=== PATIENT | male | born 1960 | race Hispanic/Latino ===

== ENCOUNTER 2018-10-27 11:46 | Emergency (ER) | payer BC ==
[2018-10-27] MEDS ORDERED: NACL 0.9% 1000 ML 1,000 ML IV ONE (11:56)
--- NOTE | 2018-10-27 12:37 | Emergency Department Report ---
ED General Adult HPI - General Chief complaint: Sore Throat Stated complaint: FOOT STUCK IN ESOPHAGUS Time Seen by Provider: 10/27/18 11:54 Source: patient Mode of arrival: Ambulatory Limitations: No Limitations - History of Present Illness Initial comments: This is a 58-year-old male with an apparent food impaction of his lower esophagus. He states it happened last night. He tried to drink this morning and was unsuccessful. He is unable to use as well. He has been through several prior disimpactions as well as bougienage. His GI doctor called in anticipation of him needing EGD. He has experienced no dyspnea or significant cough. -: Sudden, hour(s) Associated Symptoms: denies other symptoms - Related Data Previous Rx's Medication Instructions Recorded Last Taken Type Omeprazole 40 mg PO DAILY #30 capsule. 10/27/18 Unknown Rx Allergies Allergy/AdvReac Type Severity Reaction Status Date / Time No Known Allergies Allergy Verified 10/27/18 11:51 ED Review of Systems ROS: Stated complaint: FOOT STUCK IN ESOPHAGUS Other details as noted in HPI Constitutional: denies: chills, fever Eyes: denies: eye pain, eye discharge, vision change ENT: denies: ear pain, throat pain Respiratory: denies: cough, shortness of breath, wheezing Cardiovascular: denies: chest pain, palpitations Endocrine: no symptoms reported Gastrointestinal: abdominal pain (lower chest/upper abdominal discomfort). denies: nausea, diarrhea Genitourinary: denies: urgency, dysuria Musculoskeletal: denies: back pain, joint swelling, arthralgia Skin: denies: rash, lesions Neurological: denies: headache, weakness, paresthesias Psychiatric: denies: anxiety, depression Hematological/Lymphatic: denies: easy bleeding, easy bruising ED Past Medical Hx - Past Medical History Previous Medical History?: Yes Additional medical history: Esophageal stenosis/obstruction - Surgical History Past Surgical History?: Yes Additional Surgical History: Prior esophageal bougienage - Social History Substance Use Type: None - Medications Home Medications: Home Medications Medication Instructions Recorded Confirmed Last Taken Type Omeprazole 40 mg PO DAILY #30 capsule. 10/27/18 Unknown Rx ED Physical Exam - General Limitations: No Limitations General appearance: alert, in no apparent distress - Head Head exam: Present: atraumatic, normocephalic - Eye Eye exam: Present: normal appearance. Absent: scleral icterus - ENT ENT exam: Present: mucous membranes moist - Neck Neck exam: Present: normal inspection - Respiratory Respiratory exam: Present: normal lung sounds bilaterally. Absent: respiratory distress - Cardiovascular Cardiovascular Exam: Present: regular rate, normal rhythm. Absent: systolic murmur, diastolic murmur, rubs, gallop - GI/Abdominal GI/Abdominal exam: Present: soft, normal bowel sounds. Absent: distended, tenderness, guarding, rebound, rigid - Rectal Rectal exam: Present: deferred - Extremities Exam Extremities exam: Present: normal inspection - Back Exam Back exam: Present: normal inspection - Neurological Exam Neurological exam: Present: alert, oriented X3, CN II-XII intact. Absent: motor sensory deficit - Psychiatric Psychiatric exam: Present: normal affect, normal mood - Skin Skin exam: Present: warm, dry, intact, normal color. Absent: rash ED Course Vital Signs 10/27/18 12:41 Temperature 97.8 F Pulse Rate 78 Respiratory 17 Rate Blood Pressure 138/83 - Reevaluation(s) Reevaluation #1: 10/27/18 12:36 Dr. Chisholm in route to provide EGD. Reevaluation #2: Spoke to Dr. Chisholm. He requested I discharged the patient for him. Spoke to the patient. He does not take aspirin, Plavix or anticoagulants. He is advised not to take any NSAID use and avoid stomach irritation since general. He is placed on omeprazole. He is to follow-up with Dr. Chisholm in 2-3 weeks. 10/27/18 15:48 ED Medical Decision Making - Lab Data Result diagrams: 10/27/18 12:12 10/27/18 12:12 Laboratory Results - last 24 hr 10/27/18 10/27/18 12:12 12:12 WBC 2.0 L RBC 4.57 Hgb 11.9 Hct 37.4 MCV 82 L MCH 26 L MCHC 32 RDW 17.7 H Plt Count 45 L Sodium 143 Potassium 3.8 Chloride 103.7 Carbon Dioxide 25 Anion Gap 18 BUN 13 Creatinine 0.8 Estimated GFR > 60 BUN/Creatinine Ratio 16 Glucose 98 Calcium 9.1 - EKG Data -: EKG Interpreted by [facility] EKG shows normal: sinus rhythm, intervals, ST-T waves Rate: normal - EKG Data Interpretation: no acute changes, other (consistent with old anterior zone consider rotation left axis deviation) Critical care attestation.: If time is entered above; I have spent that time in minutes in the direct care of this critically ill patient, excluding procedure time. ED Disposition Clinical Impression: Food impaction of esophagus Qualifiers: Encounter type: initial encounter Qualified Code(s): T18.128A - Food in esophagus causing other injury, initial encounter Disposition: TO HOME OR SELFCARE Is pt being admited?: No Does the pt Need Aspirin: No Condition: Stable Instructions: Esophageal Stricture (ED), Gastroesophageal Reflux Disease (ED), Food Impaction (ED) Additional Instructions: Avoid all stomach irritants. Rx omeprazole. Follow up with Dr. Chisholm. Prescriptions: Omeprazole 40 mg PO DAILY #30 capsule.dr Referrals: [facility] MD VIOLETA [Primary Care Provider] - 3-5 Days KEISHA CHISHOLM MD [Staff Physician] - 7-10 days Time of Disposition: 12:37
[2018-10-27 12:50] LABS: Hematocrit 37.4 % (35.5-45.6); Hemoglobin 11.9 gm/dl (11.8-15.2); Mean Corpuscular HGB Conc 32 % (32-34); Mean Corpuscular Volume 82 fl (84-94); Red Blood Count 4.57 M/mm3 (3.65-5.03); Red Cell Distribution Width 17.7 % (13.2-15.2)
[2018-10-27 13:00] LABS: Platelet Count 45 K/mm3 (140-440)
[2018-10-27 13:17] LABS: BUN/Creatinine Ratio 16; Blood Urea Nitrogen 13 mg/dL (9-20); Calcium 9.1 mg/dL (8.4-10.2); Hemolysis Index 2
--- NOTE | 2018-10-27 13:31 | History and Physical Report ---
HISTORY OF PRESENT ILLNESS: A 58-year-old white male, well known to me over several years, who has history of repeated attacks of food impaction, last EGD and dislodgement of the food impaction was a few years earlier. He had to go to another hospital in between, which was done by another physician. Today, he presented to the ER because of another bout of food impaction for which he is being seen and will require EGD with dislodgement of the food impaction to be done and possible EGD with dilation to be done at a later date. ALLERGIES: He has no known allergies. SOCIAL HISTORY: He had been a smoker in the past, but does not smoke and on rare occasion does drink alcohol. PAST MEDICAL HISTORY: He has an underlying history of hypertension, hyperlipidemia. PHYSICAL EXAMINATION: VITAL SIGNS: Otherwise stable. NECK: Shows no JVD. LUNGS: Show reduced breath sounds. CARDIOVASCULAR: Normal. ABDOMEN: Soft. Bowel sounds present. NEUROLOGIC: He is otherwise alert and oriented. ASSESSMENT: Food impaction, history of esophageal stenosis that had required esophageal dilation in the past, hypertension, hyperlipidemia. PLAN: To do an EGD with dislodgement of the food bolus to be done today and he will be brought back at a later date for EGD with dilation to be done. JOB# [id number] TRACI/NTS
[2018-10-27 13:46] LABS: Basophils % (Manual) 0 % (0.0-1.8); Total Cells Counted 100
[2018-10-27 13:47] LABS: Anisocytosis 1+; Poikilocytosis 1+; Stomatocytes Few
[2018-10-27 13:48] LABS: Ovalocytes Few; Platelet Estimate Consistent w Auto
[2018-10-27] MEDS ORDERED: NACL 0.9% 1000 ML 1,000 ML ONE (14:22)
[2018-10-27] MEDS ORDERED: VERSED IV ONE ×3 (14:34→15:07)
[2018-10-27] MEDS ORDERED: SUBLIMAZE ONE (14:35)
[2018-10-27] MEDS ORDERED: SUBLIMAZE IV ONE ×2 (15:00→15:11)
[2018-10-27] MEDS ORDERED: BENADRYL IV ONE ×3 (15:05→15:10)
[2018-10-27] MEDS ORDERED: BENADRYL ONE (15:05)
--- NOTE | 2018-10-27 15:45 | Operative Report ---
PROCEDURE: EGD with dislodgement of food impaction. INDICATIONS: A 58-year-old white male with an underlying history of hypertension, hyperlipidemia, history of coronary artery disease, prior history of coronary stents. Last he has had 2 stents placed on separate occasions, last one being 4-5 years ago, otherwise doing well from a cardiac standpoint. He had presented to the Emergency Room because of food impaction. He has had food impactions in the past and has required emergent endoscopic evaluation with dislodgement of the food bolus and also has had EGD with esophageal dilation done in the past, but not in the recent past, the last time being about 3 years ago. DESCRIPTION OF PROCEDURE: Procedure was done after getting informed consent with conscious sedation. The patient was given a titrated dose of 75 mcg of IV fentanyl, 3 mg of IV Versed and 25 mg of IV Benadryl. Instrument was passed through the hypopharynx into the esophagus, which showed a large food bolus in the lower end of the esophagus. This was washed with 50 mL syringe in 2 occasions and then the food bolus was dislodged into the gastric lumen using the tip of the endoscope. There was some trauma to the distal esophageal mucosa. Following that, the scope was withdrawn. The patient was given some additional 25 mcg IV fentanyl and the instrument was reintroduced. The food bolus appears to be dislodged. The stomach showed antral erosion and gastritis. Pylorus is patent. Duodenum in the first and the second portion appeared normal. ASSESSMENT: Food bolus, status post dislodgement, small mucosal tear secondary to trauma from dislodgement of this food bolus and because of the way the food bolus was stuck to the distal esophagus, antral erosion, gastritis, patent pylorus. Plan is to advise the patient avoid aspirin and aspirin-related products for the next 3 days. Follow up in the office in 1-2 weeks' time. Also advised the patient to avoid aspirin and aspirin-related products for the next 4-5 days. Treat the patient with PPI, stay on a clear liquid diet. Follow up in 7-10 days and the patient may require repeat EGD with dilation possibly in 3 weeks' time. Procedure was done in the ER with assistance and presence of the GI lab team, which included Lelo CAMPBELL as well as taylor Pablo. Procedure was done with conscious sedation. There was minimal bleeding associated with the procedure and no obvious complication associated with the procedure. JOB# [id number] TRACI/EVE
[2018-10-27 16:36] VITALS: BP 140/87
== END 2018-10-27 16:15 | disposition home or self-care (01) ==
LOC: ED 11:46
DX: T18.128A Food in esophagus causing other injury, initial encounter (principal); X58.XXXA Exposure to other specified factors, initial encounter; Y93.89 Activity, other specified; Y92.89 Other specified places as the place of occurrence of the external cause; Y99.8 Other external cause status
CPT/HCPCS: 36415; 43247; 80048; 85007; 85025; 93005; 93010; 96374; 99283; J1200; J2250; J3010; J7030; 96361; 96375